=== PATIENT | male | born 1950 | race Caucasian/White ===

== ENCOUNTER → 2017-11-10 | Day surgery (SDC) | payer MEDICARE ==
[2017-11-07 10:06] LABS: BASOPHILS # (AUTO) 0.1 (0.0-0.1); BASOPHILS % 0.9 % (0.0-1.0); EOSINOPHILS # (AUTO) 0.2 (0.0-0.4); EOSINOPHILS % 2.6 % (0.0-6.0); HEMATOCRIT 46.8 % (38.2-49.6); HEMOGLOBIN 15.8 g/dL (14.0-18.0); LYMPHOCYTES # (AUTO) 2.1 (1.0-3.2); LYMPHOCYTES % 32.2 % (18.0-39.1); MEAN CORPUSCULAR HEMOGLOBIN 32.5 pg (28-32); MEAN CORPUSCULAR HGB CONC 33.8 g/dL (31-35); MEAN CORPUSCULAR VOLUME 96.3 fL (81-99); MONOCYTES # (AUTO) 0.6 (0.2-0.8); MONOCYTES % 8.8 % (4.4-11.3); NEUTROPHILS # (AUTO) 3.6 (2.1-6.9); NEUTROPHILS % 54.9 % (38.7-80.0); PLATELET COUNT 166 x10e3/uL (140-360); RED BLOOD COUNT 4.86 x10e6/uL (4.3-5.7); RED CELL DISTRIBUTION WIDTH 12.8 % (11.7-14.4)
[2017-11-07 10:19] LABS: BLOOD UREA NITROGEN 11 mg/dL (7-26); BUN/CREATININE RATIO 12 (6-25); CALCIUM 9.3 mg/dL (8.4-10.2); CARBON DIOXIDE 26 mmol/L (22-29); CHLORIDE 104 mmol/L (98-107); CREATININE, SERUM 0.93 mg/dL (0.72-1.25); EST GLOMERULAR FILTRATION RATE > 60 ML/MIN (60-); GLUCOSE 113 mg/dL (74-118); SODIUM 139 mmol/L (136-145)
--- NOTE | 2017-11-07 11:29 | Diagnostic Imaging Report ---
PROCEDURE: X-RAY CHEST, TWO VIEWS COMPARISON: Chest radiograph 09/05/2015, CT scan of the chest without contrast 05/09/2017. INDICATIONS: PREOP - RIGHT SCAPULA MASS FINDINGS: Lungs are well-inflated. No focal consolidation, pleural effusion, or pneumothorax. Stable calcified granuloma in the right upper lobe. Focal peripheral right upper lobe scar described on the comparison CT is poorly visualized by plain radiography. Linear opacity in the lingula compatible with fibrotic change is unchanged. No new consolidation. Stable cardiomediastinal contour with tortuosity of the thoracic aorta. Normal heart size. No pulmonary edema. No acute osseous abnormality. Cervical spine fusion hardware is partially visualized on the lateral radiograph. CONCLUSION: No acute cardiopulmonary abnormality. Dictated by: Wolf Gallagher M.D. on 11/07/2017 at 11:30 Electronically approved by: Wolf Gallagher M.D. on 11/07/2017 at 11:30
[~2017-11-10] MED LIST: ASPIR 8181 MG PO; ASPIRIN 81 MG; ATORVASTATIN CA10 MG PO; ATROPINE SULFATE 1 MG/ML VIAL ONE; BUPIVACAINE 0.25% 30ML SDV INJ ONE; BUPIVACAINE 0.25%/EPI 30ML SDV INJ ONE; CEFAZOLIN SOD 1 GM VIAL ONE; DEXAMETHASONE SOD PHOS INJ 4 MG/ML VIAL ONE; EPHEDRINE SULFATE INJ 50 MG/10 ML SYR ONE; FENTANYL CITRATE/PF 100MCG/2 ML INJ ONE; GLYCOPYRROLATE INJ 1MG/ 5 ML SYR ONE; HYDROCHLOROTHIA25 MG PO; HYDROCODONE/APAP 7.5MG-325MG 1 EA TAB ONE; IRBESARTAN150 MG PO; KETOROLAC TROMETHAMINE 30 MG/ML VIAL ONE; LIDOCAINE HCL 1% 2 ML AMP ONE; LIDOCAINE HCL 2% LOCAL INJ 5 ML SDV VIAL INJ ONE; MIDAZOLAM HCL 2 MG/2 ML VIAL ONE; NEOSTIGMINE 5 MG/5ML SYR ONE; NIFEDIPINE ER30 M1 PO; NORCO 7.5-3251 EACH PO; ONDANSETRON HCL INJ 2 MG/ML VIAL ONE; PROPOFOL IV EMULSION 10 MG/ML 20 ML VIAL ONE; ROCURONIUM BROMIDE 10 MG/ML 5ML VIAL ONE; SEVOFLURANE INHAL SOLN 250 ML PEN BTL ONE; Z.0.ATENOLOL50 MG PO; Z.0.DIOVAN HCT 3201 PO; Z.0.SIMVASTATIN10 MG PO; Z.0.TEKTURNA300 MG PO
--- OUTSIDE RECORDS SUMMARY | 2017-11-10 07:36 | XMS REPORT ---
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 Allergies, Adverse Reactions, Alerts This patient has no known allergies or adverse reactions. Medications This patient has no known medications. Results Test Description Test Time Test Comments Text Results Atomic Results Result Comments CHEST 2 VIEWS [place] [address] Patient Name: ODILIA BELTRAN MR #: [id number] : 1950 Age/Sex: 66/M Req # : [id number] Adm Physician: Ordered by: RUPERT MANN MD Report #: [id number] Location: OR Room/Bed: Procedure: [id number] DX/CHEST 2 VIEWS Exam Date: 11/07/17 Exam Time : 1005 REPORT STATUS: Signed PROCEDURE: X-RAY CHEST, TWO VIEWS COMPARISON: Chest radiograph 09/05/2015, CT scan of the chest without contrast 05/09/2017. INDICATIONS: PREOP - RIGHT SCAPULA MASS FINDINGS: Lungs are well-inflated. No focal consolidation, pleural effusion, or pneumothorax. Stable calcified granuloma in the right upper lobe. Focal peripheral right upper lobe scar described on the comparison CT is poorly visualized by plain radiography. Linear opacity in the lingula compatible with fibrotic change is unchanged. No new consolidation. Stable cardiomediastinal contour with tortuosity of the thoracic aorta. Normal heart size. No pulmonary edema. No acute osseous abnormality. Cervical spine fusion hardware is partially visualized on the lateral radiograph. CONCLUSION: No acute cardiopulmonary abnormality. Dictated by : Dorothy Rachel M.D. on 11/07/2017 at 11:30 Electronically approved by: Dorothy Rachel M.D. on 11/07/2017 at 11:30 Dictated By: DOROTHY RACHEL MD 1130 Transcribed By: ROHAN on 11/07/17 1130 COPY TO: RUPERT MANN MD CT CHEST WO [place] [address] Patient Name: ODILIA BELTRAN MR #: [id number] : 1950 Age/Sex: 66/M Req # : [id number] Adm Physician: Ordered by: DOROTHY MARTINEZ MD Report #: [id number] Location: CT Room/Bed: Procedure: [id number] CT/CT CHEST WO Exam Date: 05/09/17 Exam Time: 0945 REPORT STATUS: Signed PROCEDURE: CT CHEST WITHOUT CONTRAST CT scan of the chest WITHOUT intravenous contrast, using standard protocol. TECHNIQUE: The chest was scanned utilizing a multidetector helical scanner from the apex to the level of the adrenal glands. No IV contrast was administered as per physician request. Coronal and sagittal multiplanar reformations were obtained. COMPARISON: CT chest 06/04/2016. INDICATIONS: LUNG NODULE/SCARRING FINDINGS: Lines/tubes: None. Lungs and Airways: Stable scar is present in the right upper lobe, series 3 image 23, unchanged compared to the previous study, as seen on series 4 image 31 of the previous examination. Minimal bilateral midlung atelectasis/scarring. No focal consolidation or parenchymal mass. Minimal bilateral lower lobe bronchiectasis. The lungs and airways are normal with no focal abnormality demonstrated. Pleura: The pleural spaces are clear. Heart and mediastinum: Atherosclerotic calcifications of the thoracic aorta and coronary arteries. The thyroid gland is normal. No significant mediastinal, hilar or axillary lymphadenopathy is seen. The heart and pericardium are within normal limits. Soft tissues: Normal. Abdomen : Limited views of the upper abdomen show no abnormality within the visualized liver, spleen, pancreas, or kidneys. The adrenal glands are normal. Bones: The visualized bony thorax is within normal limits. Degenerative changes of the thoracic spine. IMPRESSION: Stable right upper lobe scarring. No acute abnormality of the chest. Dictated by: Katie Campbell M.D. on 05/09/2017 at 11:28 Electronically approved by: Katie Campbell M.D. on 05/09/2017 at 11:28 Dictated By: KATIE CAMPBELL MD 1128 COPY TO: DOROTHY MARTINEZ MD
--- NOTE | 2017-11-10 11:58 | Operative Report ---
DATE OF PROCEDURE: November 10, 2017 PREOPERATIVE DIAGNOSES 1. Large mass of the right scapular region. 2. Colon screen. POSTOPERATIVE DIAGNOSES 1. Large intramuscular mass of the right scapular region. 2. Polyp of the ascending colon. OPERATION PERFORMED 1. Excision of large intramuscular mass of the right scapular region. 2. Full colonoscopy to the cecum with polypectomy of ascending colon polyp. SUTURE WINDER HAND: NAVIN Desir. ANESTHESIA: General. COMPLICATIONS: None. ESTIMATED BLOOD LOSS: Minimal. DESCRIPTION OF PROCEDURE: With the patient lying in bed in the lateral position, under good general anesthesia, the back was prepped with Betadine solution and draped in the usual manner. The area overlying the mass in the right scapular region was then infiltrated with 1/4 percent Marcaine with epinephrine. An incision was made. It was carried down through the subcutaneous tissue and through the superficial muscle layer. The mass was actually between the ribs and the muscles and extended in an interdigitating fashion into several of the muscle bundles in the periscapular area. The mass was slowly and carefully from the chest wall and resected from all of the muscles of the scapula. It was totally and completely removed. The whole area was thoroughly irrigated. Perfect hemostasis was ascertained. The muscle layers were then reapproximated with interrupted sutures of 2-0 Vicryl. The subcutaneous tissue was approximated with 2-0 Vicryl, and the skin was closed with interrupted vertical mattress sutures of 3-0 silk. Dressing was applied. The sponge, lap and needle count was correct. The full flexible colonoscope was then introduced and slowly and carefully advanced up the rectum, sigmoid colon, descending colon, transverse colon and all the way down into the cecal pouch. The only positive finding was to the mid ascending colon where there was a small polypoid flat lesion present, which appeared to be a benign polyp. This was completely resected with the cold biopsy forceps, totally removed and sent for pathological examination. The colonoscope was then removed. The patient tolerated both procedures well and returned to the recovery room in stable condition. Job#: [id number] WHITLEY
== END | disposition home or self-care (01) ==
LOC: OR 07:33
PROVIDERS: ATTEND Surgery
DX: D17.79 Benign lipomatous neoplasm of other sites (principal); D12.2 Benign neoplasm of ascending colon; I10 Essential (primary) hypertension; E78.5 Hyperlipidemia, unspecified; J98.4 Other disorders of lung; Z01.810 Encounter for preprocedural cardiovascular examination; Z01.812 Encounter for preprocedural laboratory examination; Z01.818 Encounter for other preprocedural examination; Z79.82 Long term (current) use of aspirin; Z87.891 Personal history of nicotine dependence
CPT/HCPCS: 23073; 36415; 45380; 71046; 80048; 85025; 88304; 88305; 93005; J0461; J0690; J1100; J1885; J2001; J2250; J2405

== ENCOUNTER → 2018-06-01 | Outpatient (CLI) | payer MEDICARE ==
[~2018-06-01] MED LIST changes: -ATROPINE SULFATE 1 MG/ML VIAL ONE; -BUPIVACAINE 0.25% 30ML SDV INJ ONE; -BUPIVACAINE 0.25%/EPI 30ML SDV INJ ONE; -CEFAZOLIN SOD 1 GM VIAL ONE; -DEXAMETHASONE SOD PHOS INJ 4 MG/ML VIAL ONE; -EPHEDRINE SULFATE INJ 50 MG/10 ML SYR ONE; -FENTANYL CITRATE/PF 100MCG/2 ML INJ ONE; -GLYCOPYRROLATE INJ 1MG/ 5 ML SYR ONE; -HYDROCODONE/APAP 7.5MG-325MG 1 EA TAB ONE; -KETOROLAC TROMETHAMINE 30 MG/ML VIAL ONE; -LIDOCAINE HCL 1% 2 ML AMP ONE; -LIDOCAINE HCL 2% LOCAL INJ 5 ML SDV VIAL INJ ONE; -MIDAZOLAM HCL 2 MG/2 ML VIAL ONE; -NEOSTIGMINE 5 MG/5ML SYR ONE; -ONDANSETRON HCL INJ 2 MG/ML VIAL ONE; -PROPOFOL IV EMULSION 10 MG/ML 20 ML VIAL ONE; -ROCURONIUM BROMIDE 10 MG/ML 5ML VIAL ONE; -SEVOFLURANE INHAL SOLN 250 ML PEN BTL ONE
--- NOTE | 2018-06-01 14:31 | Diagnostic Imaging Report ---
ADDENDUM #1 Addendum: Subsequent comparison dated 05/09/2017 made available. Solid and cystic lesion in the right upper lobe was present on previous study. More superior component measuring 15 x 12 mm is essentially stable. More inferior cystic component with mild wall irregularity measuring 18 x 12 mm has increased in size, previously measuring approximately 9 x 5 mm. 3-[address] follow-up recommendations remain as developing cystic malignancy possible. Signed by: Dr. Seun Stanton MD on 06/24/2018 8:19 AM ORIGINAL REPORT EXAM: CT Chest WITHOUT contrast INDICATION: Nodules COMPARISON: None. TECHNIQUE: The Chest was scanned utilizing a multidetector helical scanner without the use of IV contrast. Coronal and sagittal reformations were obtained. IV CONTRAST: None COMPLICATIONS: None RADIATION DOSE: Total DLP: 474 mGy*cm Estimated effective dose: (DLP x 0.015 x size factor) mSv CTDIvol has been reviewed. It is below the limits set by the Radiation Protocol Committee (RPC). Appropriate CT dose reduction techniques were utilized. FINDINGS: Lines and Tubes: None. Lower Neck: Nodular heterogeneous thyroid. Heart and Great Vessels: The aorta and main pulmonary artery measure 34 and 27 mm. respectively. Small pericardial effusion inferiorly, statistically physiologic. Moderate aortic and coronary artery vascular calcifications. Lymph Nodes: Small mediastinal lymph nodes, not enlarged by size criteria. Largest level 7/right level 11 12-mm short axis. The hilar regions are sub-optimally evaluated given lack of IV contrast. Lungs: Mild biapical scarring with no pneumothorax or pleural effusion. Trachea and central bronchi are unremarkable. There is a cystic lesion with thickened irregular roman in the right upper lobe with 2 distinct components, more superiorly measuring 15 x 12 mm series 3 image 29 and more inferiorly 18 x 12 mm series 3 image 34. Minimal surrounding groundglass present. Mild apical predominant centrilobular emphysematous changes present. There is scarring in the right middle lobe and lingula with superimposed atelectasis/scarring in the lung bases. Mild scattered peripheral bronchial wall thickening. Upper abdomen: No acute findings. Bones and Soft Tissues: Degenerative changes spine. IMPRESSION: 1. Adjacent cystic lesions in the right upper lobe with wall irregularity and nodularity. While infectious/inflammatory process possible, cystic malignancy could have similar appearance. If prior imaging is available for comparison this would be very helpful. Otherwise, three-month CT follow-up after appropriate therapy recommended. If lesion persists, PET/CT would be recommended. 2. Mild centrilobular emphysematous changes. 3. Nodular thyroid gland. Ultrasound recommended. Signed by: Dr. Seun Stanton MD on 06/01/2018 2:28 PM
== END ==
LOC: CT 13:16
PROVIDERS: ATTEND Internal Medicine Pulmonary Disease
DX: R91.8 Other nonspecific abnormal finding of lung field (principal)
CPT/HCPCS: 71250

== ENCOUNTER → 2018-11-16 | Outpatient (CLI) | payer MEDICARE ==
--- NOTE | 2018-11-16 12:31 | Diagnostic Imaging Report ---
EXAM: CT Chest WITHOUT contrast 11/16/2018 9:53 AM INDICATION: Abnormal chest findings COMPARISON: Chest CT, 06/01/2018, 05/09/2017 TECHNIQUE: Chest was scanned utilizing a multidetector helical scanner from the lung apex through the level of the adrenal glands without administration of IV contrast. Absence of intravenous contrast decreases sensitivity for detection of lymphadenopathy and vascular pathology. Coronal and sagittal reformations were obtained. Routine protocol was performed. Dose modulation, iterative reconstruction, and/or weight based adjustment of the mA/kV was utilized to reduce the radiation dose to as low as reasonably achievable. IV CONTRAST: None RADIATION DOSE: Total DLP: 258.69 mGy*cm Estimated effective dose: (DLP x 0.014 x size factor) mSv COMPLICATIONS: None FINDINGS: LINES/ TUBES: None. LUNGS AND AIRWAYS: Again noted is a complex lesion in the right upper lobe with a superior predominantly solid spiculated component and inferior cavitated component. Spiculated solid component is unchanged (1.5 x 1.2 x 1.1 cm) (series 3, image 34; series 401, image 81) while the inferior cavitation has become slightly larger (1.3 x 1.2 x 1.3 cm) (series 3, image 36; series 401, image 82). Trachea and main bronchi are clear. There is bilateral perihilar bronchial wall thickening. PLEURA: The pleural spaces are clear. HEART AND MEDIASTINUM: The thyroid gland is normal. No mediastinal, hilar or axillary lymphadenopathy. The heart is normal in size.. There is no pericardial effusion. The thoracic aorta is atherosclerotic. Coronary artery calcifications are seen. No dilatation of the thoracic aorta or main pulmonary artery. UPPER ABDOMEN: Lobulated hepatic contours with trace ascites in the upper abdomen suggestive of cirrhosis. Included portions of liver, spleen, pancreas and adrenals show no focal abnormality. BONES: No acute or suspicious bony lesions. SOFT TISSUES: Superficial surrounding soft tissue unremarkable. IMPRESSION: 1. Right upper lobe lesion is partially spiculated mass and partially cavitated. The cavitation has become slightly larger since last exam, and the overall lesion has become larger since 05/09/2017. Findings are suspicious for neoplasm or atypical infection. Bronchoscopy may be helpful in characterization. No new masses are seen. 2. Hepatic morphology is suspicious for cirrhosis. Signed by: Dr. Jase Valdes M.D. on 11/16/2018 12:28 PM
== END ==
LOC: CT 09:38
PROVIDERS: ATTEND Internal Medicine Pulmonary Disease
DX: R91.8 Other nonspecific abnormal finding of lung field (principal)
CPT/HCPCS: 71250

== ENCOUNTER → 2019-03-18 | Outpatient (CLI) | payer MEDICARE | LOC: LAB 11:48 | PROVIDERS: ATTEND Internal Medicine Pulmonary Disease | DX: R91.1 Solitary pulmonary nodule (principal) | CPT/HCPCS: 87070; 87116; 87205; 87206 ==

== ENCOUNTER → 2019-04-14 | Outpatient (CLI) | payer MEDICARE ==
--- NOTE | 2019-04-14 10:43 | Diagnostic Imaging Report ---
EXAM: CT Chest WITHOUT intravenous contrast 04/14/2019 9:34 AM INDICATION: Pulmonary nodule COMPARISON: Chest CT of 11/16/2018 and 06/01/2018 TECHNIQUE: Chest was scanned utilizing a multidetector helical scanner from the lung apex through the level of the adrenal glands without administration of IV contrast. Coronal and sagittal reformations were obtained. Routine protocol was performed. IV CONTRAST: None RADIATION DOSE: Total DLP: 255.1 mGy*cm. Dose modulation, iterative reconstruction, and/or weight based adjustment of the mA/kV was utilized to reduce the radiation dose to as low as reasonably achievable. COMPLICATIONS: None FINDINGS: LINES/ TUBES: None. LUNGS AND AIRWAYS: The lungs are hyperinflated. The central airways are patent. Bilateral centrilobular emphysema. No focal consolidation. Again seen and essentially unchanged is the predominantly cavitary spiculated nodule at the right upper lobe. The primary cavitary component measures 11 x 18 mm, not significantly changed dating back to 06/01/2018. No new or enlarging suspicious pulmonary nodules. PLEURA: No pleural effusion. No pneumothorax. HEART AND MEDIASTINUM: There is a 9 mm hypodense nodule in the left thyroid lobe, likely clinically insignificant. No supraclavicular, axillary, mediastinal, or hilar lymphadenopathy. The heart is not enlarged. No pericardial effusion. Atherosclerotic calcifications involve the coronary arteries and aorta and great vessels. UPPER ABDOMEN: Limited noncontrast enhanced images of the upper abdomen demonstrate nodular liver surface contour and small volume ascites, consistent with cirrhosis. No focal liver lesion. No other focal abnormality of the partially visualized gallbladder, spleen, pancreas, or adrenals. The kidneys are not visualized. BONES: No acute osseous injury. No suspicious lytic or blastic lesions. Mild degenerative changes of the visualized spine. Partially visualized cervical spine fusion hardware. SOFT TISSUES: Unremarkable. IMPRESSION: No significant change in predominantly cavitary spiculated nodule at the right upper lobe dating back to 06/01/2018. Given interval stability, this is more likely a postinfectious process than malignancy. However, continued CT follow-up at 6 months or with PET CT is recommended to assess for long-term stability. Hepatic cirrhosis and ascites. Atherosclerotic arterial calcifications including of the coronary arteries. Signed by: Baylee Aguilar MD on 04/14/2019 10:40 AM
== END ==
LOC: CT 09:29
PROVIDERS: ATTEND Internal Medicine Pulmonary Disease
DX: R91.1 Solitary pulmonary nodule (principal)
CPT/HCPCS: 71250

== ENCOUNTER → 2019-09-20 | Outpatient (CLI) | payer MEDICARE ==
--- NOTE | 2019-09-20 10:53 | Diagnostic Imaging Report ---
CT of the chest, without contrast, 09/20/2019. History: Abnormal findings on diagnostic imaging. Comparison: CT of the chest dated 04/14/2019, 11/16/2018. Technique: Multidetector CT scanning of the chest was performed from the level of the thoracic inlet to the upper abdomen without IV or oral contrast. Dose reduction: The examination was performed according to departmental dose-optimization program which includes automated exposure control, adjustment of the mA and/or kV according to patient size and/or use of iterative reconstruction technique. Findings: There is no axillary, mediastinal, or hilar lymphadenopathy. The heart is within normal limits of size. Coronary artery calcifications are noted. There is no pericardial effusion. The thoracic aorta is of normal course and caliber. Secretions are noted in the distal trachea. The right and left mainstem bronchi are clear. Centrilobular emphysematous changes are noted Unchanged cavitary and spiculated nodule in the right upper lobe. Cavitary component measures approximately 11 x 18 mm. No new pulmonary nodules are identified. There is no pleural effusion. There is no pneumothorax. Scattered areas of atelectasis are present. Limited evaluation of the upper abdomen demonstrates a cirrhotic morphology of the liver with trace perihepatic ascites. There are acute osseous abnormalities. Anterior cervical fusion hardware is partially visualized. IMPRESSION: Unchanged cavitary and spiculated right upper lobe nodule. Recommend continued CT follow-up in 6 months versus PET/CT. No new suspicious nodules identified. Cirrhosis with ascites. Signed by: Fede Morris MD on 09/20/2019 10:50 AM
== END ==
LOC: CT 09:13
PROVIDERS: ATTEND Internal Medicine Pulmonary Disease
DX: R93.89 Abnormal findings on diagnostic imaging of other specified body structures (principal)
CPT/HCPCS: 71250

== ENCOUNTER → 2020-07-03 | Outpatient (CLI) | payer MEDICARE | LOC: CT 11:46 | PROVIDERS: ATTEND Internal Medicine Pulmonary Disease | DX: R93.89 Abnormal findings on diagnostic imaging of other specified body structures (principal) | CPT/HCPCS: 71250 ==

== ENCOUNTER → 2020-12-22 | Outpatient (CLI) | payer MEDICARE ==
[~2020-12-22] MED LIST changes: +DIATRIZOATE MEGL/DIATRIZOA SOD 30 ML BTL PO ONE; +IOPAMIDOL 370 MG/ML 200 ML INFUS..BTL INJ ONE; +SODIUM CHLORIDE 0.9% 50ML 50 ML ONE
== END ==
LOC: CT 16:05
PROVIDERS: ATTEND Surgery
DX: R10.9 Unspecified abdominal pain (principal); I51.7 Cardiomegaly; R91.8 Other nonspecific abnormal finding of lung field
CPT/HCPCS: 71260; 74177; Q9967

== ENCOUNTER → 2021-01-23 | Outpatient (CLI) | payer MEDICARE ==
[~2021-01-23] MED LIST changes: -DIATRIZOATE MEGL/DIATRIZOA SOD 30 ML BTL PO ONE; -IOPAMIDOL 370 MG/ML 200 ML INFUS..BTL INJ ONE; -SODIUM CHLORIDE 0.9% 50ML 50 ML ONE
== END ==
LOC: US 07:39
PROVIDERS: ATTEND Internal Medicine Gastroenterology
DX: K74.60 Unspecified cirrhosis of liver (principal)
CPT/HCPCS: 76705

== ENCOUNTER → 2021-03-12 | Day surgery (SDC) | payer MEDICARE ==
[2021-03-09 11:03] LABS: BASOPHILS # (AUTO) 0.1 (0.0-0.1); BASOPHILS % 0.7 % (0.0-1.0); EOSINOPHILS # (AUTO) 0.2 (0.0-0.4); EOSINOPHILS % 2.5 % (0.0-6.0); HEMATOCRIT 45.7 % (38.2-49.6); HEMOGLOBIN 14.9 g/dL (14.0-18.0); LYMPHOCYTES # (AUTO) 1.8 (1.0-3.2); LYMPHOCYTES % 26.8 % (18.0-39.1); MEAN CORPUSCULAR HEMOGLOBIN 31.6 pg (28-32); MEAN CORPUSCULAR HGB CONC 32.6 g/dL (31-35); MONOCYTES # (AUTO) 0.6 (0.2-0.8); NEUTROPHILS # (AUTO) 4.1 (2.1-6.9); NEUTROPHILS % 60.9 % (38.7-80.0); PLATELET COUNT 127 x10e3/uL (140-360); RED BLOOD COUNT 4.71 x10e6/uL (4.3-5.7); RED CELL DISTRIBUTION WIDTH 13.6 % (11.7-14.4)
[~2021-03-12] MED LIST changes: +BENICAR HCT 201 EACH; +LIDOCAINE HCL 2% LOCAL INJ 5 ML SDV VIAL INJ ONE; +PROPOFOL IV EMULSION 10 MG/ML 20 ML VIAL ONE
[2021-03-12 10:40] VITALS: BP 121/78
== END | disposition home or self-care (01) ==
LOC: OR 08:01
PROVIDERS: ATTEND Internal Medicine Gastroenterology
DX: K20.90 Esophagitis, unspecified without bleeding (principal); K29.00 Acute gastritis without bleeding; K44.9 Diaphragmatic hernia without obstruction or gangrene; I10 Essential (primary) hypertension; E78.00 Pure hypercholesterolemia, unspecified; K57.92 Diverticulitis of intestine, part unspecified, without perforation or abscess without bleeding; K70.30 Alcoholic cirrhosis of liver without ascites; F10.10 Alcohol abuse, uncomplicated; Z01.810 Encounter for preprocedural cardiovascular examination; Z01.812 Encounter for preprocedural laboratory examination; Z20.822 Contact with and (suspected) exposure to COVID-19
CPT/HCPCS: 36415; 43239; 85025; 88305; 88312; 93005; U0002; J2001

== ENCOUNTER → 2021-10-08 | Outpatient (CLI) | payer MEDICARE ==
[~2021-10-08] MED LIST changes: -LIDOCAINE HCL 2% LOCAL INJ 5 ML SDV VIAL INJ ONE; -PROPOFOL IV EMULSION 10 MG/ML 20 ML VIAL ONE
== END ==
LOC: CT 09:36
PROVIDERS: ATTEND Internal Medicine Pulmonary Disease
DX: R91.1 Solitary pulmonary nodule (principal)
CPT/HCPCS: 71250

== ENCOUNTER → 2021-10-24 | Outpatient (CLI) | payer MEDICARE | LOC: RAD 08:28 | PROVIDERS: ATTEND Internal Medicine Pulmonary Disease | DX: R60.0 Localized edema (principal) | CPT/HCPCS: 83880; 93970 ==

== ENCOUNTER → 2022-04-17 | Outpatient (CLI) | payer MEDICARE | LOC: US 09:06 | PROVIDERS: ATTEND Internal Medicine Gastroenterology | DX: K74.60 Unspecified cirrhosis of liver (principal) | CPT/HCPCS: 76705 ==

== ENCOUNTER → 2022-10-11 | Outpatient (CLI) | payer MEDICARE | LOC: CT 16:19 | PROVIDERS: ATTEND Internal Medicine Pulmonary Disease | DX: R91.8 Other nonspecific abnormal finding of lung field (principal) | CPT/HCPCS: 71250 ==

== ENCOUNTER → 2022-10-17 | Outpatient (CLI) | payer MEDICARE | LOC: LAB 13:00 | PROVIDERS: ATTEND Internal Medicine Pulmonary Disease | DX: A31.9 Mycobacterial infection, unspecified (principal) | CPT/HCPCS: 87116; 87206 ==

== ENCOUNTER → 2022-10-22 | Outpatient (CLI) | payer MEDICARE | LOC: US 10:31 | PROVIDERS: ATTEND Internal Medicine Gastroenterology | DX: K74.60 Unspecified cirrhosis of liver (principal) | CPT/HCPCS: 76700 ==

== ENCOUNTER → 2022-11-13 | Outpatient (CLI) | payer MEDICARE ==
[2022-11-12 10:18] LABS: BASOPHILS % 0.6 % (0.0-1.0); EOSINOPHILS # (AUTO) 0.1 (0.0-0.4); EOSINOPHILS % 2.2 % (0.0-6.0); HEMATOCRIT 41.7 % (38.2-49.6); HEMOGLOBIN 14.3 g/dL (14.0-18.0); LYMPHOCYTES # (AUTO) 1.3 (1.0-3.2); LYMPHOCYTES % 20.4 % (18.0-39.1); MEAN CORPUSCULAR HEMOGLOBIN 33.2 pg (28-32); MEAN CORPUSCULAR HGB CONC 34.3 g/dL (31-35); MEAN CORPUSCULAR VOLUME 96.8 fL (81-99); MONOCYTES # (AUTO) 0.6 (0.2-0.8); MONOCYTES % 9.4 % (4.4-11.3); NEUTROPHILS # (AUTO) 4.2 (2.1-6.9); NEUTROPHILS % 67.2 % (38.7-80.0); PLATELET COUNT 138 x10e3/uL (140-360); RED BLOOD COUNT 4.31 x10e6/uL (4.3-5.7); RED CELL DISTRIBUTION WIDTH 14.2 % (11.7-14.4)
[2022-11-12 10:39] LABS: INR 1.22; PROTHROMBIN TIME 15.9 seconds (11.9-14.5)
[2022-11-12 10:46] LABS: ANION GAP 14.7 mmol/L (8-16); CALCIUM 8.4 mg/dL (8.4-10.2); CREATININE, SERUM 0.89 mg/dL (0.72-1.25); POTASSIUM 3.7 mmol/L (3.5-5.1)
[~2022-11-13] MED LIST changes: +FENTANYL CITRATE/PF 100MCG/2 ML INJ ONE; +LIDOCAINE HCL 1% LOCAL INJ 20 ML VIAL ONE; +MIDAZOLAM HCL 2 MG/2 ML VIAL ONE; +SODIUM CHLORIDE 0.9% 250ML 250 ML ONE
[2022-11-13 13:02] LABS: BODY FLUID APPEARANCE CLOUDY; BODY FLUID COLOR YELLOW; BODY FLUID TYPE PERITONEAL; RBC,BODY FLUID 1000 cells/uL; WBC,BODY FLUID 413 cells/uL
[2022-11-13 13:20] LABS: LYMPHOCYTES,BODY FLUID 89 %; MONO/MACROPHG,BODY FLUID 5 %; NEUTROPHILS,BODY FLUID 6 %
== END ==
LOC: US 07:56
PROVIDERS: ATTEND Internal Medicine Gastroenterology
DX: K74.60 Unspecified cirrhosis of liver (principal); R16.0 Hepatomegaly, not elsewhere classified; I10 Essential (primary) hypertension; Z20.822 Contact with and (suspected) exposure to COVID-19
CPT/HCPCS: 0223U; 36415 ×2; 47000; 49083; 76942; 80048; 82040; 84157; 85025; 85610; 87070 ×2; 87205; 88112; 88305; 88307; 88313; 89051; C1729; J2001; J2250; J3010; J7050; 88300; 99152; 99153

== ENCOUNTER → 2022-11-29 | Outpatient (CLI) | payer MEDICARE ==
[~2022-11-29] MED LIST changes: +ALBUMIN 25% 12.5GM 50ML 0 ML IV ONE; -FENTANYL CITRATE/PF 100MCG/2 ML INJ ONE; -LIDOCAINE HCL 1% LOCAL INJ 20 ML VIAL ONE; -MIDAZOLAM HCL 2 MG/2 ML VIAL ONE; -SODIUM CHLORIDE 0.9% 250ML 250 ML ONE
== END ==
LOC: US 13:14
PROVIDERS: ATTEND Nurse Practitioner
DX: K74.60 Unspecified cirrhosis of liver (principal)
CPT/HCPCS: 49083

== ENCOUNTER → 2022-12-06 | Outpatient (CLI) | payer MEDICARE ==
[~2022-12-06] MED LIST changes: -ALBUMIN 25% 12.5GM 50ML 0 ML IV ONE
== END ==
LOC: LAB 13:25
PROVIDERS: ATTEND Internal Medicine Pulmonary Disease
DX: A31.0 Pulmonary mycobacterial infection (principal)
CPT/HCPCS: 87070; 87205

== ENCOUNTER → 2022-12-09 | Outpatient (CLI) | payer MEDICARE ==
[~2022-12-09] MED LIST changes: +ALBUMIN 25% 12.5GM 50ML 100 ML IV ONE
== END ==
LOC: US 10:57
PROVIDERS: ATTEND Nurse Practitioner
DX: K74.60 Unspecified cirrhosis of liver (principal)
CPT/HCPCS: 49083

== ENCOUNTER → 2022-12-18 | Outpatient (CLI) | payer MEDICARE | LOC: US 15:07 | PROVIDERS: ATTEND Family Medicine | DX: K74.60 Unspecified cirrhosis of liver (principal) | CPT/HCPCS: 49083 ==

== ENCOUNTER → 2022-12-26 | Outpatient (CLI) | payer MEDICARE ==
[2022-12-26 12:44] LABS: BASOPHILS # (AUTO) 0.1 (0.0-0.1); BASOPHILS % 0.7 % (0.0-1.0); EOSINOPHILS # (AUTO) 0.2 (0.0-0.4); EOSINOPHILS % 2.3 % (0.0-6.0); HEMATOCRIT 40.6 % (38.2-49.6); LYMPHOCYTES # (AUTO) 1.6 (1.0-3.2); LYMPHOCYTES % 22.1 % (18.0-39.1); MEAN CORPUSCULAR HEMOGLOBIN 32.9 pg (28-32); MEAN CORPUSCULAR HGB CONC 34.5 g/dL (31-35); MEAN CORPUSCULAR VOLUME 95.3 fL (81-99); MONOCYTES # (AUTO) 0.6 (0.2-0.8); MONOCYTES % 8.3 % (4.4-11.3); NEUTROPHILS # (AUTO) 4.7 (2.1-6.9); NEUTROPHILS % 66.3 % (38.7-80.0); PLATELET COUNT 146 x10e3/uL (140-360); RED BLOOD COUNT 4.26 x10e6/uL (4.3-5.7)
[2022-12-26 12:50] LABS: INR 1.12; PROTHROMBIN TIME 14.9 seconds (11.9-14.5)
[2022-12-26 12:51] LABS: PARTIAL THROMBOPLASTIN TIME 32.6 seconds (23.8-35.5)
== END ==
LOC: US 12:05
PROVIDERS: ATTEND Nurse Practitioner
DX: K74.60 Unspecified cirrhosis of liver (principal)
CPT/HCPCS: 36415; 49083; 85025; 85610; 85730; C1729

== ENCOUNTER → 2023-01-03 | Outpatient (CLI) | payer MEDICARE ==
[~2023-01-03] MED LIST changes: -ALBUMIN 25% 12.5GM 50ML 100 ML IV ONE
== END ==
LOC: US 09:22
PROVIDERS: ATTEND Internal Medicine Gastroenterology
DX: K74.60 Unspecified cirrhosis of liver (principal)
CPT/HCPCS: 49083

== ENCOUNTER → 2023-01-13 | Outpatient (CLI) | payer MEDICARE ==
[~2023-01-13] MED LIST changes: +ALBUMIN 25% 12.5GM 50ML 100 ML IV ONE
== END ==
LOC: US 13:01
PROVIDERS: ATTEND Nurse Practitioner
DX: K74.60 Unspecified cirrhosis of liver (principal)
CPT/HCPCS: 49083; C1729

== ENCOUNTER → 2023-01-20 | Outpatient (CLI) | payer MEDICARE ==
[2023-01-20 12:27] LABS: BASOPHILS % 0.6 % (0.0-1.0); EOSINOPHILS # (AUTO) 0.1 (0.0-0.4); EOSINOPHILS % 1.7 % (0.0-6.0); HEMOGLOBIN 12.5 g/dL (14.0-18.0); LYMPHOCYTES # (AUTO) 1.3 (1.0-3.2); LYMPHOCYTES % 19.7 % (18.0-39.1); MEAN CORPUSCULAR HEMOGLOBIN 32.7 pg (28-32); MEAN CORPUSCULAR HGB CONC 33.8 g/dL (31-35); MEAN CORPUSCULAR VOLUME 96.9 fL (81-99); MONOCYTES # (AUTO) 0.7 (0.2-0.8); MONOCYTES % 10.2 % (4.4-11.3); NEUTROPHILS # (AUTO) 4.4 (2.1-6.9); NEUTROPHILS % 67.6 % (38.7-80.0); PLATELET COUNT 142 x10e3/uL (140-360); RED BLOOD COUNT 3.82 x10e6/uL (4.3-5.7); RED CELL DISTRIBUTION WIDTH 14.5 % (11.7-14.4)
[2023-01-20 12:50] LABS: INR 1.25; PARTIAL THROMBOPLASTIN TIME 32.8 seconds (23.8-35.5); PROTHROMBIN TIME 16.4 seconds (11.9-14.5)
[2023-01-20 12:55] LABS: ALBUMIN 2.6 g/dL (3.5-5.0); ALBUMIN/GLOBULIN RATIO 0.7 (0.8-2.0); ANION GAP 11.7 mmol/L (8-16); CALCIUM 8.2 mg/dL (8.4-10.2); CREATININE, SERUM 0.79 mg/dL (0.72-1.25); POTASSIUM 3.7 mmol/L (3.5-5.1)
== END ==
LOC: US 11:38
PROVIDERS: ATTEND Nurse Practitioner
DX: K74.60 Unspecified cirrhosis of liver (principal)
CPT/HCPCS: 36415; 49083; 80053; 85025; 85610; 85730

== ENCOUNTER → 2023-01-28 | Outpatient (CLI) | payer MEDICARE | LOC: US 12:14 | PROVIDERS: ATTEND Nurse Practitioner | DX: K74.60 Unspecified cirrhosis of liver (principal) | CPT/HCPCS: 49083; C1729 ==

== ENCOUNTER → 2023-02-06 | Outpatient (CLI) | payer MEDICARE ==
[~2023-02-06] MED LIST changes: -ALBUMIN 25% 12.5GM 50ML 100 ML IV ONE
== END ==
LOC: US 09:10
PROVIDERS: ATTEND Nurse Practitioner
DX: K74.60 Unspecified cirrhosis of liver (principal)
CPT/HCPCS: 49083; C1729

== ENCOUNTER → 2023-05-07 | Outpatient (REF) | payer MEDICARE | LOC: US 10:05 | PROVIDERS: ATTEND Nurse Practitioner | DX: R18.8 Other ascites (principal); K74.60 Unspecified cirrhosis of liver | CPT/HCPCS: 49083 ==

== ENCOUNTER → 2023-05-14 | Outpatient (REF) | payer MEDICARE | LOC: US 10:03 | PROVIDERS: ATTEND Nurse Practitioner | DX: R18.8 Other ascites (principal); K74.60 Unspecified cirrhosis of liver | CPT/HCPCS: 49083 ==

== ENCOUNTER → 2023-05-21 | Outpatient (REF) | payer MEDICARE | LOC: US 10:01 | PROVIDERS: ATTEND Nurse Practitioner | DX: R18.8 Other ascites (principal); K74.60 Unspecified cirrhosis of liver | CPT/HCPCS: 49083 ==

== ENCOUNTER → 2023-06-17 | Outpatient (REF) | payer MEDICARE | LOC: US 12:15 | PROVIDERS: ATTEND Nurse Practitioner | DX: R18.8 Other ascites (principal); K74.60 Unspecified cirrhosis of liver | CPT/HCPCS: 49083 ==

== ENCOUNTER → 2023-11-13 | Outpatient (REF) | payer MEDICARE | LOC: MAMMO 10:32 | PROVIDERS: ATTEND Family Medicine | DX: N62 Hypertrophy of breast (principal) | CPT/HCPCS: 77066 ==

== ENCOUNTER → 2024-04-01 | Outpatient (REF) | payer MEDICARE | LOC: US 09:35 | PROVIDERS: ATTEND Nurse Practitioner | DX: R18.8 Other ascites (principal); K74.60 Unspecified cirrhosis of liver; K29.71 Gastritis, unspecified, with bleeding; Z86.010 Personal history of colon polyps | CPT/HCPCS: 76700 ==

== ENCOUNTER → 2024-04-26 | Day surgery (SDC) | payer MEDICARE ==
[2024-04-23 10:54] LABS: INR 1.07; PROTHROMBIN TIME 14.5 seconds (11.9-14.5)
[2024-04-23 10:55] LABS: PARTIAL THROMBOPLASTIN TIME 31.3 seconds (23.8-35.5)
[2024-04-23 11:00] LABS: BASOPHILS % 0.5 % (0.0-1.0); EOSINOPHILS # (AUTO) 0.2 (0.0-0.4); EOSINOPHILS % 2.8 % (0.0-6.0); HEMATOCRIT 43.8 % (38.2-49.6); HEMOGLOBIN 14.5 g/dL (14.0-18.0); LYMPHOCYTES # (AUTO) 1.3 (1.0-3.2); LYMPHOCYTES % 15.8 % (18.0-39.1); MEAN CORPUSCULAR HEMOGLOBIN 34.6 pg (28-32); MEAN CORPUSCULAR HGB CONC 33.1 g/dL (31-35); MEAN CORPUSCULAR VOLUME 104.5 fL (81-99); MONOCYTES # (AUTO) 0.8 (0.2-0.8); MONOCYTES % 10.4 % (4.4-11.3); NEUTROPHILS # (AUTO) 5.6 (2.1-6.9); NEUTROPHILS % 70.2 % (38.7-80.0); PLATELET COUNT 98 x10e3/uL (140-360); RED BLOOD COUNT 4.19 x10e6/uL (4.3-5.7); RED CELL DISTRIBUTION WIDTH 14.1 % (11.7-14.4); WHITE BLOOD COUNT 7.96 x10e3/uL (4.8-10.8)
[2024-04-23 12:24] LABS: ALBUMIN 3.3 g/dL (3.5-5.0); ANION GAP 12.9 mmol/L (8-16); BILIRUBIN,TOTAL 1.9 mg/dL (0.2-1.2); CALCIUM 8.8 mg/dL (8.4-10.2); CREATININE, SERUM 0.87 mg/dL (0.72-1.25); POTASSIUM 3.9 mmol/L (3.5-5.1); TOTAL PROTEIN 6.6 g/dL (6.5-8.1)
[~2024-04-26] MED LIST changes: +ALBUTEROL0.63 MG/3 NEB; +AMILORIDE HCL5 MG PO; +ANORO ELLIPTA1 EACH INH; +DEXMEDETOMIDINE HCL 200 MCG/2 ML VIAL ONE; +FENTANYL CITRATE/PF 100MCG/2 ML INJ ONE; +FLOMAX0.4 MG PO; +FUROSEMIDE40 MG PO; +LIDOCAINE HCL 2% LOCAL INJ 5 ML SDV VIAL INJ ONE; +PANTOPRAZOLE SO40 MG PO; +PROPOFOL IV EMULSION 10 MG/ML 50 ML VIAL IV ONE
[2024-04-26] MEDS: LACTATED RINGER'S 1,000 ML ONE (07:57)
[2024-04-26] MEDS: FAMOTIDINE 20 MG/2 ML VIAL IV ONE (08:47)
[2024-04-26] MEDS: METOCLOPRAMIDE HCL 10 MG/2ML VIAL ONE (08:47)
[2024-04-26 10:50] VITALS: BP 125/77; PULSE 82; RESP 17; TEMP 97.3; O2SAT 97
== END | disposition home or self-care (01) ==
LOC: OR 07:33
PROVIDERS: ATTEND Internal Medicine Gastroenterology
DX: Z09 Encounter for follow-up examination after completed treatment for conditions other than malignant neoplasm (principal); D12.2 Benign neoplasm of ascending colon; D12.0 Benign neoplasm of cecum; D12.4 Benign neoplasm of descending colon; K57.30 Diverticulosis of large intestine without perforation or abscess without bleeding; K64.8 Other hemorrhoids; K21.00 Gastro-esophageal reflux disease with esophagitis, without bleeding; K29.50 Unspecified chronic gastritis without bleeding; K31.7 Polyp of stomach and duodenum; K76.6 Portal hypertension; K31.89 Other diseases of stomach and duodenum; K74.60 Unspecified cirrhosis of liver; I10 Essential (primary) hypertension; E78.2 Mixed hyperlipidemia; I20.89 Other forms of angina pectoris; R00.2 Palpitations; Z01.812 Encounter for preprocedural laboratory examination; Z01.810 Encounter for preprocedural cardiovascular examination; Z79.899 Other long term (current) drug therapy
CPT/HCPCS: 36415; 43239; 43251; 45380; 45385; 80053; 85025; 85610; 85730; 88305; 88342; 93005; J2003; J2470; J2704; J2765; J3010; J7121; 45378

== ENCOUNTER 2024-10-08 23:42 | Inpatient (IN) | payer MEDICARE ==
[~2024-10-08] VITALS: Ht 170.2 cm; Wt 71.7 kg
[~2024-10-08 23:42] MED LIST changes: -DEXMEDETOMIDINE HCL 200 MCG/2 ML VIAL ONE; -FENTANYL CITRATE/PF 100MCG/2 ML INJ ONE; -LIDOCAINE HCL 2% LOCAL INJ 5 ML SDV VIAL INJ ONE; -PROPOFOL IV EMULSION 10 MG/ML 50 ML VIAL IV ONE
[2024-10-08 23:49] VITALS: RESP 18; TEMP 98
[2024-10-09] VITALS (12 sets, daily range): BP systolic 133–163; BP diastolic 74–92; PULSE 89–103; RESP 17–20; TEMP 97.9–98.4; O2SAT 93–98
[2024-10-09] MEDS: ONDANSETRON HCL INJ 2MG/ML 2ML 2 MG/ML VIAL IV STA (00:13)
[2024-10-09] MEDS: SODIUM CHLORIDE 0.9% 500ML 500 ML IV ONE (00:13)
[2024-10-09] MEDS: Morphine 2mg Syringe 2 MG/ML SYR IV ONE (00:16)
[2024-10-09 00:22] LABS: INR 1.21
[2024-10-09 00:23] LABS: PARTIAL THROMBOPLASTIN TIME 33.9 seconds (23.8-35.5)
[2024-10-09 00:29] LABS: ALBUMIN 3.1 g/dL (3.5-5.0); ANION GAP 13.2 mmol/L (8-16); BILIRUBIN,TOTAL 3.1 mg/dL (0.2-1.2); CALCIUM 8.5 mg/dL (8.4-10.2); CREATININE, SERUM 0.9 mg/dL (0.72-1.25); POTASSIUM 4.2 mmol/L (3.5-5.1); TOTAL PROTEIN 6.1 g/dL (6.5-8.1)
[2024-10-09 00:42] LABS: BASOPHILS % 0.6 % (0.0-1.0); EOSINOPHILS # (AUTO) 0.1 (0.0-0.4); HEMATOCRIT 41.3 % (38.2-49.6); HEMOGLOBIN 14.3 g/dL (14.0-18.0); LYMPHOCYTES # (AUTO) 0.6 (1.0-3.2); LYMPHOCYTES % 8.8 % (18.0-39.1); MEAN CORPUSCULAR HEMOGLOBIN 34.7 pg (28-32); MEAN CORPUSCULAR HGB CONC 34.6 g/dL (31-35); MEAN CORPUSCULAR VOLUME 100.2 fL (81-99); MONOCYTES # (AUTO) 0.6 (0.2-0.8); MONOCYTES % 9.9 % (4.4-11.3); NEUTROPHILS # (AUTO) 5.1 (2.1-6.9); NEUTROPHILS % 78.5 % (38.7-80.0); RED BLOOD COUNT 4.12 x10e6/uL (4.3-5.7); RED CELL DISTRIBUTION WIDTH 14.6 % (11.7-14.4); WHITE BLOOD COUNT 6.46 x10e3/uL (4.8-10.8)
[2024-10-09 00:55] LABS: PLATELET COUNT 85 x10e3/uL (140-360)
[2024-10-09 01:07] LABS: TROPONIN I 0.01 ng/mL (0-0.300)
[2024-10-09] MEDS ORDERED: IOPAMIDOL 370 MG/ML 100 ML INFUS..BTL INJ ONE (01:11)
[2024-10-09] MEDS: SODIUM CHLORIDE 0.9% 1000ML 1,000 ML IV SCH (04:18)
[2024-10-09 04:56] LABS: BILIRUBIN,URINE NEGATIVE (NEGATIVE); CLARITY,URINE CLEAR (CLEAR); COLOR,URINE YELLOW (YELLOW); GLUCOSE, URINE NEGATIVE (NEGATIVE); KETONES,URINE NEGATIVE (NEGATIVE); LEUKOCYTE ESTERASE ,URINE NEGATIVE (NEGATIVE); NITRITE,URINE NEGATIVE (NEGATIVE); PH,URINE 6.5 (5 - 7); PROTEIN,URINE DIPSTICK NEGATIVE (NEGATIVE)
[2024-10-09 05:08] LABS: BACTERIA,URINE FEW /HPF; EPITHELIAL CELLS,URINE FEW /LPF; RBC,URINE 0-5 /HPF (0-5); WBC,URINE (MAN) 0-5 /HPF (0-5)
[2024-10-09] MEDS: ONDANSETRON HCL INJ 2MG/ML 2ML 2 MG/ML VIAL IV PRN (05:38)
[2024-10-09] MEDS: Morphine 4mg INJECTION 4 MG/ML INJ IV PRN (05:39)
[2024-10-09] MEDS ORDERED: ALBUTEROL SULF 0.083% NEB SOLN 3 ML NEB NEB PRN (20:45)
[2024-10-09] MEDS: FUROSEMIDE INJ 10 MG/ML 2 ML VIAL IV ONE (21:03)
[2024-10-10] VITALS (9 sets, daily range): BP systolic 143–152; BP diastolic 56–84; PULSE 81–99; RESP 18–22; TEMP 97.1–98.4; O2SAT 95–98
[2024-10-10 06:57] LABS: BASOPHILS % 0.5 % (0.0-1.0); EOSINOPHILS # (AUTO) 0.3 (0.0-0.4); HEMATOCRIT 41.5 % (38.2-49.6); LYMPHOCYTES # (AUTO) 0.8 (1.0-3.2); LYMPHOCYTES % 9.9 % (18.0-39.1); MEAN CORPUSCULAR HEMOGLOBIN 34.8 pg (28-32); MEAN CORPUSCULAR HGB CONC 33.7 g/dL (31-35); MEAN CORPUSCULAR VOLUME 103.2 fL (81-99); MONOCYTES % 12.4 % (4.4-11.3); NEUTROPHILS # (AUTO) 5.8 (2.1-6.9); NEUTROPHILS % 72.9 % (38.7-80.0); PLATELET COUNT 80 x10e3/uL (140-360); RED BLOOD COUNT 4.02 x10e6/uL (4.3-5.7); RED CELL DISTRIBUTION WIDTH 15.2 % (11.7-14.4); WHITE BLOOD COUNT 7.97 x10e3/uL (4.8-10.8)
[2024-10-10 07:43] LABS: ALBUMIN 2.6 g/dL (3.5-5.0); ANION GAP 13.2 mmol/L (8-16); BILIRUBIN,TOTAL 3.6 mg/dL (0.2-1.2); CALCIUM 8.1 mg/dL (8.4-10.2); CREATININE, SERUM 0.84 mg/dL (0.72-1.25); POTASSIUM 4.2 mmol/L (3.5-5.1); TOTAL PROTEIN 5.3 g/dL (6.5-8.1)
[2024-10-10] MEDS: FUROSEMIDE INJ 10 MG/ML 2 ML VIAL IV SCH (17:07)
[2024-10-11] VITALS (8 sets, daily range): BP systolic 137–153; BP diastolic 70–80; PULSE 88–96; RESP 17–19; TEMP 97.8–98; O2SAT 94–98
[2024-10-11 06:38] LABS: BASOPHILS % 0.6 % (0.0-1.0); EOSINOPHILS # (AUTO) 0.2 (0.0-0.4); EOSINOPHILS % 3.5 % (0.0-6.0); HEMATOCRIT 39.4 % (38.2-49.6); HEMOGLOBIN 13.3 g/dL (14.0-18.0); LYMPHOCYTES # (AUTO) 0.8 (1.0-3.2); LYMPHOCYTES % 13.2 % (18.0-39.1); MEAN CORPUSCULAR HEMOGLOBIN 34.4 pg (28-32); MEAN CORPUSCULAR HGB CONC 33.8 g/dL (31-35); MEAN CORPUSCULAR VOLUME 101.8 fL (81-99); MONOCYTES # (AUTO) 0.8 (0.2-0.8); MONOCYTES % 12.4 % (4.4-11.3); NEUTROPHILS # (AUTO) 4.4 (2.1-6.9); NEUTROPHILS % 69.8 % (38.7-80.0); PLATELET COUNT 78 x10e3/uL (140-360); RED BLOOD COUNT 3.87 x10e6/uL (4.3-5.7); RED CELL DISTRIBUTION WIDTH 14.8 % (11.7-14.4); WHITE BLOOD COUNT 6.35 x10e3/uL (4.8-10.8)
[2024-10-11 07:03] LABS: ALBUMIN 2.4 g/dL (3.5-5.0); ANION GAP 12.8 mmol/L (8-16); BILIRUBIN,TOTAL 3.4 mg/dL (0.2-1.2); CALCIUM 7.7 mg/dL (8.4-10.2); CREATININE, SERUM 0.8 mg/dL (0.72-1.25); POTASSIUM 3.8 mmol/L (3.5-5.1); TOTAL PROTEIN 4.8 g/dL (6.5-8.1)
== END 2024-10-11 17:55 | disposition home or self-care (01) | DRG 389 ==
LOC: ER 23:50 → ERHOLD 10-09 03:46 → MED/SURG3 10-09 04:30
PROVIDERS: ADMIT Family Medicine Adult Medicine; ATTEND Family Medicine Adult Medicine
DX: K56.609 Unspecified intestinal obstruction, unspecified as to partial versus complete obstruction (principal); C22.9 Malignant neoplasm of liver, not specified as primary or secondary; D84.821 Immunodeficiency due to drugs; K76.6 Portal hypertension; D69.6 Thrombocytopenia, unspecified; K70.31 Alcoholic cirrhosis of liver with ascites; K43.9 Ventral hernia without obstruction or gangrene; E78.5 Hyperlipidemia, unspecified; R74.8 Abnormal levels of other serum enzymes; Z79.69 Long term (current) use of other immunomodulators and immunosuppressants; Z90.49 Acquired absence of other specified parts of digestive tract; Z87.891 Personal history of nicotine dependence
CPT/HCPCS: 36415; 71045; 74018; 74177; 74470; 76705; 80053; 81001; 83690; 84484; 85025; 85610; 85730; 93005; 94799; 99284; J1940; J2270; J2405; J2470; J2543; J7030; J7040; Q9967

== ENCOUNTER → 2024-11-12 | Outpatient (REF) | payer MEDICARE ==
[2024-11-12 10:36] LABS: INR 1.12; PROTHROMBIN TIME 15.1 seconds (11.9-14.5)
[2024-11-12 10:37] LABS: PARTIAL THROMBOPLASTIN TIME 25.5 seconds (23.8-35.5)
[2024-11-12 15:16] LABS: BODY FLUID APPEARANCE CLOUDY; BODY FLUID COLOR YELLOW; BODY FLUID TYPE PERITONEAL; RBC,BODY FLUID < 2000 cells/uL; WBC,BODY FLUID 170 cells/uL
[2024-11-12 17:49] LABS: LYMPHOCYTES,BODY FLUID 39 %; MONO/MACROPHG,BODY FLUID 47 %; NEUTROPHILS,BODY FLUID 9 %; OTHER CELLS,BODY FLUID 5 %; TOTAL CELLS COUNTED (DIFF) 100
== END ==
LOC: US 09:23
PROVIDERS: ATTEND Nurse Practitioner
DX: R18.8 Other ascites (principal); C22.9 Malignant neoplasm of liver, not specified as primary or secondary; K74.60 Unspecified cirrhosis of liver
CPT/HCPCS: 36415; 49083; 82040; 84157; 85610; 85730; 87070; 87205; 88112; 88305; 89051

== ENCOUNTER 2024-12-01 17:17 | Emergency (ER) | payer MEDICARE ==
[~2024-12-01] VITALS: Ht 170.2 cm; Wt 73.5 kg
[2024-12-01 17:46] LABS: BASOPHILS % 0.7 % (0.0-1.0); EOSINOPHILS # (AUTO) 0.1 (0.0-0.4); HEMATOCRIT 42.7 % (38.2-49.6); HEMOGLOBIN 14.4 g/dL (14.0-18.0); LYMPHOCYTES # (AUTO) 0.8 (1.0-3.2); LYMPHOCYTES % 13.3 % (18.0-39.1); MEAN CORPUSCULAR HEMOGLOBIN 34.4 pg (28-32); MEAN CORPUSCULAR HGB CONC 33.7 g/dL (31-35); MEAN CORPUSCULAR VOLUME 101.9 fL (81-99); MONOCYTES # (AUTO) 0.6 (0.2-0.8); MONOCYTES % 9.7 % (4.4-11.3); NEUTROPHILS # (AUTO) 4.5 (2.1-6.9); NEUTROPHILS % 74.1 % (38.7-80.0); RED BLOOD COUNT 4.19 x10e6/uL (4.3-5.7); RED CELL DISTRIBUTION WIDTH 15.5 % (11.7-14.4); WHITE BLOOD COUNT 6.01 x10e3/uL (4.8-10.8)
[2024-12-01 17:48] VITALS: PULSE 97; RESP 26; TEMP 98.2
[2024-12-01 17:48] LABS: PLATELET COUNT 85 x10e3/uL (140-360)
[2024-12-01] MEDS: ALBUTEROL/IPRATROPIUM 3 ML NEB NEB ONE (17:54)
[2024-12-01 18:04] LABS: ALBUMIN 2.8 g/dL (3.5-5.0); ALBUMIN/GLOBULIN RATIO 0.8 (0.8-2.0); ANION GAP 11.8 mmol/L (8-16); CALCIUM 8.1 mg/dL (8.4-10.2); CREATININE, SERUM 0.79 mg/dL (0.72-1.25); POTASSIUM 4.8 mmol/L (3.5-5.1); TOTAL PROTEIN 6.1 g/dL (6.5-8.1)
[2024-12-01 18:06] LABS: ABG PCO2 31 mmHg (35-45); ABG PO2 100 mmHg (80-105)
[2024-12-01 18:06] LABS: INR 1.18
[2024-12-01 18:07] LABS: ABG HCO3 19 mmol/L (22-26); ABG TCO2 20
[2024-12-01 18:10] LABS: TROPONIN I 0.011 ng/mL (0-0.300)
[2024-12-01] MEDS: SODIUM CHLORIDE 0.9% 1000ML 1,000 ML IV STA (19:11)
[2024-12-01] MEDS: CEFTRIAXONE 2 GM in SODIUM CHLORIDE 0.9% 100 ML IV ONE (19:11)
[2024-12-01] MEDS ORDERED: AZITHROMYCIN250 MG PO (19:48)
[2024-12-01] MEDS ORDERED: MEDROL4 M2 PO (19:48)
[2024-12-01 19:59] VITALS: BP 129/82; PULSE 87; RESP 19; O2SAT 97
== END 2024-12-01 19:56 | disposition home or self-care (01) ==
LOC: ER 17:33
DX: J44.1 Chronic obstructive pulmonary disease with (acute) exacerbation (principal); R06.02 Shortness of breath; I10 Essential (primary) hypertension; Z85.05 Personal history of malignant neoplasm of liver; Z87.19 Personal history of other diseases of the digestive system
CPT/HCPCS: 36415; 71045; 80053; 82550; 82805; 83605; 83735; 83880; 84484; 85025; 85610; 85730; 87040; 93005; 99284; J0696; J7030; J7050

== ENCOUNTER → 2025-03-10 | Day surgery (SDC) | payer MEDICARE ==
[2025-03-03 09:23] LABS: BASOPHILS % 0.5 % (0.0-1.0); EOSINOPHILS % 3.2 % (0.0-6.0); LYMPHOCYTES % 17.3 % (18.0-39.1); MONOCYTES % 9.5 % (4.4-11.3); NEUTROPHILS % 69.3 % (38.7-80.0); RED CELL DISTRIBUTION WIDTH 16.1 % (11.7-14.4)
[2025-03-03 09:37] LABS: INR 1.14
[2025-03-03 09:51] LABS: EST GLOMERULAR FILTRATION RATE 94.0 ML/MIN (>=60)
[~2025-03-10] MED LIST changes: +AZITHROMYCIN250 MG PO; +FENTANYL CITRATE/PF 100MCG/2 ML INJ ONE; +GLYCOPYRROLATE INJ 0.2 MG/ML VIAL ONE; +KETAMINE HCL INJ 50 MG/ML 10 ML VIAL ONE; +LENVIMA4 MG PO; +LIDOCAINE HCL 2% LOCAL INJ 5 ML SDV VIAL INJ ONE; +MEDROL4 M2 PO; +MULTI-VITAMIN1 EACH PO; +ONDANSETRON HCL INJ 2MG/ML 2ML 2 MG/ML VIAL ONE; +PROPOFOL IV EMULSION 50 ML IV ONE
[2025-03-10] MEDS: LACTATED RINGER'S 1,000 ML ONE (10:15)
[2025-03-10] MEDS: CARVEDILOL 12.5 MG TAB PO ONE (12:28)
[2025-03-10 12:29] VITALS: BP 116/74; PULSE 85; RESP 17; O2SAT 97
== END | disposition home or self-care (01) ==
LOC: OR 09:07
PROVIDERS: ATTEND Internal Medicine Gastroenterology
DX: K74.60 Unspecified cirrhosis of liver (principal); I85.10 Secondary esophageal varices without bleeding; C22.9 Malignant neoplasm of liver, not specified as primary or secondary; I86.4 Gastric varices; K29.70 Gastritis, unspecified, without bleeding; K76.6 Portal hypertension; K31.89 Other diseases of stomach and duodenum; J44.9 Chronic obstructive pulmonary disease, unspecified; Z01.810 Encounter for preprocedural cardiovascular examination; Z01.812 Encounter for preprocedural laboratory examination; Z79.899 Other long term (current) drug therapy; Z92.25 Personal history of immunosuppression therapy
CPT/HCPCS: 36415; 43235; 80053; 85025; 85610; 85730; 93005; J2003; J2405; J2470; J2704; J3010; J7121

== ENCOUNTER → 2025-04-04 | Outpatient (REF) | payer MEDICARE ==
[~2025-04-04] MED LIST changes: -FENTANYL CITRATE/PF 100MCG/2 ML INJ ONE; -GLYCOPYRROLATE INJ 0.2 MG/ML VIAL ONE; -KETAMINE HCL INJ 50 MG/ML 10 ML VIAL ONE; -LIDOCAINE HCL 2% LOCAL INJ 5 ML SDV VIAL INJ ONE; -ONDANSETRON HCL INJ 2MG/ML 2ML 2 MG/ML VIAL ONE; -PROPOFOL IV EMULSION 50 ML IV ONE
== END ==
LOC: US 09:09
PROVIDERS: ATTEND Nurse Practitioner
DX: C22.9 Malignant neoplasm of liver, not specified as primary or secondary (principal)
CPT/HCPCS: 76700

== ENCOUNTER → 2025-04-06 | Outpatient (REF) | payer MEDICARE ==
[2025-04-06 14:30] LABS: BASOPHILS % 0.8 % (0.0-1.0); EOSINOPHILS % 5.8 % (0.0-6.0); LYMPHOCYTES % 27.5 % (18.0-39.1); MONOCYTES % 13.7 % (4.4-11.3); NEUTROPHILS % 52.0 % (38.7-80.0); RED CELL DISTRIBUTION WIDTH 15.9 % (11.7-14.4)
== END ==
LOC: LAB 13:55
PROVIDERS: ATTEND Internal Medicine Pulmonary Disease
DX: J18.9 Pneumonia, unspecified organism (principal)
CPT/HCPCS: 36415; 85025